=== PATIENT | male | born 1975 | race Caucasian/White ===

== ENCOUNTER → 2018-03-30 | Outpatient (REF) ==
--- NOTE | 2018-03-31 03:15 | REP ---
Clinical: Back pain . Technique: AP, lateral, bilateral oblique, and coned-down views. Findings: Alignment and lordosis is maintained. The vertebral bodies including transverse process and spinous processes are intact and normal. There is no evidence for acute fracture / compression injury or subluxation. No evidence for spondylolysis or spondylolisthesis. No significant degenerative change is noted. Impression: Normal lumbosacral spine radiograph series. Electronically Signed by Brian Mayfield MD 03/31/2018 03:07 A
--- NOTE | 2018-03-31 03:29 | REP ---
Clinical: Neck pain Technique: AP, lateral, flexion/extension, bilateral oblique and open mouth views of the cervical spine. Findings: Alignment and lordosis maintained. Moderate focal degenerative disc osteophyte complex at C6-7 and mild degenerative change at C5-6 noted. Findings include endplate sclerosis, anterior spurring and minimal disc space narrowing. No acute fracture / compression injury or subluxation. Neural foramen appear patent. Open mouth view demonstrates normal C1-C2 articulation and odontoid process. Impression: Focal spondylosis at C6-7 and C5-6. Electronically Signed by Brian Mayfield MD 03/31/2018 03:20 A
--- NOTE | 2018-03-31 03:33 | REP ---
Clinical: Back pain. Technique: AP, lateral, swimmers views of the thoracic spine. Findings: Mild multilevel degenerative changes include endplate sclerosis with marginal spurring/osteophyte formation most pronounced at T11-12. Alignment and kyphosis maintained. No acute fracture / compression injury or subluxation. Impression: Mild multilevel degenerative changes with focal moderate degenerative change at T11-12. Electronically Signed by Brian Mayfield MD 03/31/2018 03:25 A
== END ==
LOC: M LAB 10:05
PROVIDERS: ATTEND Physician Assistant Medical
DX: Z00.00 Encounter for general adult medical examination without abnormal findings (principal)